=== PATIENT | female | born 1990 | race Caucasian/White ===

== ENCOUNTER 2021-07-26 15:41 | Outpatient (CLI) | payer BC, SELFPAY ==
--- NOTE | 2021-07-26 | ECG_ITS ---
Measurements Intervals [place] Rate: 87 P: -16 [place]: 137 QRS: 7 QRSD: 93 T: 17 QT: 367 QTc: 443 Interpretive Statements SINUS RHYTHM BORDERLINE T WAVE ABNORMALITY- INFERIOR LEADS BORDERLINE ECG Electronically Signed On 07-26-2021 16:20:22 CDT by Chad Silvestre D.O.
--- NOTE | ~2021-07-26 | XR_ITS ---
XR chest 2V DATE: 07/26/2021 16:10 INDICATION: Presurgical evaluation TECHNIQUE: PA and lateral views COMPARISON: None FINDINGS: Normal heart size. No hilar or mediastinal enlargement. No pulmonary infiltrate or consolid ation, pleural effusion or pulmonary vascular congestion or pneumothorax. IMPRESSION: No active cardiopulmonary disease Reviewed, dictated and finalized at location B.
== END 2021-07-26 15:42 | disposition home or self-care (01) ==
LOC: ANHIMG 15:48
PROVIDERS: PCP Physician Assistant; Visit Provider Physician Assistant
DX: Z01.818 Encounter for other preprocedural examination (principal)
CPT/HCPCS: 71046; 93005